=== PATIENT | female | born 1935 | race Caucasian/White ===

== ENCOUNTER 2018-05-29 05:45 | Inpatient (IN) ==
[2018-05-26 12:37] LABS: Basophils # 0.1 10*3/uL (0.0-0.2); Basophils % 0.6 % (0.0-0.8); Eosinophils # 0.1 10*3/uL (0.0-0.87); Eosinophils % 1.1 % (0.00-10.9); Hematocrit 43.5 VOL% (35.7-47.0); Hemoglobin 13.5 GM/DL (12.0-16.0); Immature Granulocytes % 0.4 %; Immature Granulocytes Absolute 0.04 #; Lymphocytes # 1.1 10*3/uL (1.4-4.0); Lymphocytes % 11.1 % (21.3-54.2); Mean Corpuscular Hemoglobin 28 PG (27-34); Mean Corpuscular Volume 89.3 FL (87-102); Mean Platelet Volume 11.2 FL (9.6-12.0); Monocytes # 0.7 10*3/uL (0.11-0.8); Monocytes % 7.1 % (1.7-12.7); Neutrophils # 7.9 10*3/uL (1.4-7.4); Neutrophils % 79.7 % (38.7-73.9); Platelet Count 346 T/CUMM (130-400); Red Blood Count 4.87 MC/CUMM (3.8-5.5); Red Cell Distribution Width 16.7 % (9.3-17.3)
[2018-05-26 12:45] LABS: PT Patient Result 10.7 SECS
[2018-05-26 12:56] LABS: Calcium 9.4 MG/DL (8.5-10.1); Osmolality,Calculated 285.4 MOS/KG (273-304); Potassium 4.6 MMOL/L (3.5-5.1)
[2018-05-28 10:36] LABS: Apearance,Urine Slightly Hazy (Clear); Bacteria,Urine Occasional /HPF (Few); Bilirubin,Urine Negative (Negative); Blood, Urine Negative (Negative); Glucose,Urine (UA) Negative (Negative); Ketones,Urine Negative (Negative); Mucus,Urine Occasional /LPF (Occasional); Nitrite,Urine Negative (Negative); Protein,Urine Negative; RBC,Urine <1 /HPF (0-4); Squamous Epithelial Cell,Urine Occasional /HPF (0-10); Urine Color Yellow (Yellow); Urine Specific Gravity 1.017 (1.001-1.035); Urine Urobilinogen < 2.0 EU/DL (0.2-1.0)
[~2018-05-29 05:45] MED LIST: CEFUROXIME 1,500 MG VIAL ONE; SODIUM CHLORIDE 0.9% 1,000 ML IV PRN
[2018-05-29] MEDS ORDERED: HEPARIN/NACL 0.9% 2 UNITS/ML 500 ML IV ONE (06:06)
[2018-05-29] MEDS ORDERED: PHENYLEPHRINE DRIP 20 MG/250 ML PREMIX IV ONE (06:07)
[2018-05-29] MEDS ORDERED: TISSUE ADHESIVE 1 EACH APPLICATOR TOP ONE (06:20)
[2018-05-29] MEDS: LACTATED RINGERS 1,000 ML IV SCH ×2 (06:20→10:58)
[2018-05-29] MEDS ORDERED: BUPIVACAINE LIPOSOMAL 20 ML/266 MG VIAL ONE (06:20)
[2018-05-29] MEDS ORDERED: DOXYCYCLINE HYCLATE IV ONE (06:30)
[2018-05-29] MEDS ORDERED: SODIUM CHLORIDE 0.9% IV ONE (06:30)
[2018-05-29] MEDS ORDERED: THROMBIN TOPICAL (RECOMBINANT) 5,000 UNIT VIAL TOP ONE (06:35)
[2018-05-29] MEDS ORDERED: ceFAZolin 1,000 MG in SYRINGE 1 EACH IV ONE (06:50)
[2018-05-29] MEDS ORDERED: ceFAZolin 1,000 MG VIAL ONE (06:52)
[2018-05-29] MEDS ORDERED: CLINDAMYCIN 600 MG/4 ML VIAL ONE (08:23)
[2018-05-29] MEDS ORDERED: SUGAMMADEX 200 MG/2 ML VIAL IV ONE (09:36)
[2018-05-29] MEDS ORDERED: ONDANSETRON 4 MG/2 ML VIAL IV PRN ×2 (10:15→10:46)
[2018-05-29 10:24] LABS: Apearance,Urine CLEAR (Clear); Bilirubin,Urine Negative (Negative); Blood, Urine Negative (Negative); Glucose,Urine (UA) Negative (Negative); Ketones,Urine Negative (Negative); Nitrite,Urine Negative (Negative); Protein,Urine Negative; RBC,Urine <1 /HPF (0-4); Squamous Epithelial Cell,Urine Occasional /HPF (0-10); Urine Color Yellow (Yellow); Urine Specific Gravity 1.016 (1.001-1.035); Urine Urobilinogen < 2.0 EU/DL (0.2-1.0); WBC,Urine <1 /HPF (0-6)
[2018-05-29] MEDS ORDERED: CLINDAMYCIN INJ 600 MG in PREMIX 1 EACH IV ONE (10:25)
[2018-05-29 10:46] LABS: Basophils # 0.1 10*3/uL (0.0-0.2); Basophils % 0.5 % (0.0-0.8); Eosinophils # 0.2 10*3/uL (0.0-0.87); Eosinophils % 2.2 % (0.00-10.9); Hematocrit 39.4 VOL% (35.7-47.0); Hemoglobin 12.3 GM/DL (12.0-16.0); Immature Granulocytes % 0.6 %; Immature Granulocytes Absolute 0.06 #; Lymphocytes # 2.7 10*3/uL (1.4-4.0); Lymphocytes % 26.4 % (21.3-54.2); Mean Corpuscular HGB Conc 31.2 GM/DL (32-36); Mean Corpuscular Hemoglobin 28 PG (27-34); Monocytes # 0.7 10*3/uL (0.11-0.8); Monocytes % 6.9 % (1.7-12.7); Neutrophils # 6.6 10*3/uL (1.4-7.4); Neutrophils % 63.4 % (38.7-73.9); Platelet Count 320 T/CUMM (130-400); Red Blood Count 4.38 MC/CUMM (3.8-5.5); Red Cell Distribution Width 16.6 % (9.3-17.3); White Blood Count 10.3 T/CUMM (4-12)
[2018-05-29] MEDS ORDERED: HYDROmorphone 2 MG/1 ML VIAL ONE (10:47)
[2018-05-29] MEDS ORDERED: ONDANSETRON 4 MG/2 ML VIAL ONE ×2 (10:48→10:53)
[2018-05-29] MEDS: HYDROmorphone 2 MG/1 ML VIAL IV PRN ×4 (10:50→11:08)
[2018-05-29] MEDS ORDERED: fentaNYL 100 MCG/2 ML VIAL ONE (10:53)
[2018-05-29] MEDS ORDERED: DESFLURANE 1 UNIT/15 MINUTE INH ONE (10:53)
[2018-05-29] MEDS ORDERED: PHENYLEPHRINE 1 MG/10 ML SYRINGE IV ONE (10:54)
[2018-05-29] MEDS ORDERED: LACTATED RINGERS 1,000 ML IV ONE (10:54)
[2018-05-29] MEDS ORDERED: ETOMIDATE 40 MG/20 ML VIAL IV ONE (10:54)
[2018-05-29] MEDS ORDERED: ROCURONIUM 100 MG/10 ML VIAL IV ONE (10:54)
[2018-05-29] MEDS ORDERED: ACETAMINOPHEN 1,000 MG/100 ML VIAL IV ONE (10:54)
[2018-05-29 11:35] LABS: Calcium 8.5 MG/DL (8.5-10.1); Osmolality,Calculated 286.3 MOS/KG (273-304); Potassium 4.6 MMOL/L (3.5-5.1)
[2018-05-29] MEDS: KETOROLAC 15 MG/1 ML VIAL IV SCH ×3 (12:06→21:59)
[2018-05-29] MEDS: POTASSIUM CHLORIDE INJ 10 MEQ in SODIUM CHLORIDE 0.45% 1,000 ML IV SCH (12:07)
[2018-05-29] MEDS ORDERED: LACTATED RINGERS 500 ML IV ONE ×2 (12:38→13:50)
[2018-05-29] MEDS ORDERED: PHENYLEPHRINE DRIP 40 MG/250 ML PREMIX IV PRN (13:49)
[2018-05-29] MEDS ORDERED: PHENYLEPHRINE DRIP 40 MG/250 ML PREMIX IV ONE (13:51)
[2018-05-29 14:23] LABS: Hematocrit 38.9 VOL% (35.7-47.0); Hemoglobin 11.9 GM/DL (12.0-16.0)
[2018-05-29] MEDS: GABAPENTIN 100 MG CAPSULE PO SCH ×2 (15:22→21:59)
[2018-05-29] MEDS: ACETAMINOPHEN INJ 1,000 MG in PREMIX 1 EACH IV SCH ×2 (15:25→21:59)
[2018-05-29] MEDS: NOREPINEPHRINE 8 MG in SODIUM CHLORIDE 0.9% 242 ML IV PRN (17:25)
[2018-05-29] MEDS: CEFUROXIME INJ 1,500 MG in SYRINGE 1 EACH IV SCH (17:50)
[2018-05-30 04:09] LABS: Basophils % 0.2 % (0.0-0.8); Eosinophils # 0.1 10*3/uL (0.0-0.87); Eosinophils % 0.4 % (0.00-10.9); Hematocrit 41.8 VOL% (35.7-47.0); Hemoglobin 12.6 GM/DL (12.0-16.0); Immature Granulocytes % 0.4 %; Immature Granulocytes Absolute 0.06 #; Lymphocytes # 1.2 10*3/uL (1.4-4.0); Lymphocytes % 8.4 % (21.3-54.2); Mean Corpuscular HGB Conc 30.1 GM/DL (32-36); Mean Corpuscular Hemoglobin 28 PG (27-34); Mean Corpuscular Volume 91.9 FL (87-102); Mean Platelet Volume 11.3 FL (9.6-12.0); Monocytes # 1.3 10*3/uL (0.11-0.8); Monocytes % 8.7 % (1.7-12.7); Neutrophils # 12.1 10*3/uL (1.4-7.4); Neutrophils % 81.9 % (38.7-73.9); Platelet Count 377 T/CUMM (130-400); Red Blood Count 4.55 MC/CUMM (3.8-5.5); White Blood Count 14.8 T/CUMM (4-12)
[2018-05-30 04:20] LABS: Calcium 8.7 MG/DL (8.5-10.1); Osmolality,Calculated 279.7 MOS/KG (273-304); Potassium 5.8 MMOL/L (3.5-5.1)
[2018-05-30] MEDS: POTASSIUM CHLORIDE INJ 10 MEQ in SODIUM CHLORIDE 0.45% 1,000 ML IV SCH (05:14)
[2018-05-30] MEDS: ENOXAPARIN 40 MG/0.4 ML SYRINGE SUBCUT SCH (05:40)
[2018-05-30] MEDS: ACETAMINOPHEN 500 MG TABLET PO SCH ×4 (05:40→21:53)
[2018-05-30] MEDS: KETOROLAC 15 MG/1 ML VIAL IV SCH ×4 (05:40→21:53)
[2018-05-30] MEDS: CEFUROXIME INJ 1,500 MG in SYRINGE 1 EACH IV SCH (05:41)
[2018-05-30] MEDS: LACTATED RINGERS 1,000 ML IV SCH (05:42)
[2018-05-30] MEDS ORDERED: DEXTROSE 50% 25 GM/50 ML SYRINGE IV ONE (07:58)
[2018-05-30] MEDS ORDERED: INSULIN REGULAR 100 UNIT/ML IV ONE (07:58)
[2018-05-30] MEDS: PANTOPRAZOLE 40 MG VIAL IV SCH (08:18)
[2018-05-30] MEDS: GABAPENTIN 100 MG CAPSULE PO SCH ×3 (08:20→21:53)
[2018-05-30] MEDS: CELECOXIB 200 MG CAPSULE PO SCH ×2 (08:20→21:53)
[2018-05-30] MEDS ORDERED: CALCIUM GLUCONATE 1,000 MG in SODIUM CHLORIDE 0.9% 100 ML IV ONE (08:30)
[2018-05-30] MEDS: SODIUM CHLORIDE 0.45% 1,000 ML IV SCH ×2 (08:46→22:30)
[2018-05-30] MEDS ORDERED: traMADol 50 MG TABLET PO PRN (10:15)
[2018-05-30] MEDS: NOREPINEPHRINE 8 MG in SODIUM CHLORIDE 0.9% 242 ML IV PRN (12:00)
[2018-05-31] MEDS: ENOXAPARIN 40 MG/0.4 ML SYRINGE SUBCUT SCH (04:12)
[2018-05-31] MEDS: ACETAMINOPHEN 500 MG TABLET PO SCH ×4 (04:12→21:45)
[2018-05-31] MEDS: KETOROLAC 15 MG/1 ML VIAL IV SCH (04:13)
[2018-05-31 04:20] LABS: Basophils # 0.1 10*3/uL (0.0-0.2); Basophils % 0.5 % (0.0-0.8); Eosinophils # 0.2 10*3/uL (0.0-0.87); Eosinophils % 1.7 % (0.00-10.9); Hematocrit 37.1 VOL% (35.7-47.0); Hemoglobin 11.2 GM/DL (12.0-16.0); Immature Granulocytes % 0.5 %; Immature Granulocytes Absolute 0.05 #; Lymphocytes % 9.4 % (21.3-54.2); Mean Corpuscular HGB Conc 30.2 GM/DL (32-36); Mean Corpuscular Hemoglobin 28 PG (27-34); Mean Platelet Volume 11.4 FL (9.6-12.0); Monocytes # 0.8 10*3/uL (0.11-0.8); Monocytes % 8.1 % (1.7-12.7); Neutrophils # 8.2 10*3/uL (1.4-7.4); Neutrophils % 79.8 % (38.7-73.9); Platelet Count 361 T/CUMM (130-400); Red Blood Count 3.99 MC/CUMM (3.8-5.5); Red Cell Distribution Width 17.3 % (9.3-17.3); White Blood Count 10.3 T/CUMM (4-12)
[2018-05-31 04:45] LABS: Calcium 8.5 MG/DL (8.5-10.1); Osmolality,Calculated 284.1 MOS/KG (273-304); Potassium 5.1 MMOL/L (3.5-5.1)
[2018-05-31] MEDS: LACTATED RINGERS 1,000 ML IV SCH (06:13)
[2018-05-31] MEDS: GABAPENTIN 100 MG CAPSULE PO SCH ×3 (08:20→21:45)
[2018-05-31] MEDS: CELECOXIB 200 MG CAPSULE PO SCH ×2 (08:20→21:45)
[2018-05-31] MEDS: PANTOPRAZOLE 40 MG VIAL IV SCH (08:20)
[2018-05-31] MEDS: SODIUM CHLORIDE 0.45% 1,000 ML IV SCH (12:02)
[2018-05-31] MEDS: NOREPINEPHRINE 8 MG in SODIUM CHLORIDE 0.9% 242 ML IV PRN (15:00)
[2018-06-01] MEDS: LACTATED RINGERS 1,000 ML IV SCH (05:00)
[2018-06-01] MEDS: ACETAMINOPHEN 500 MG TABLET PO SCH ×4 (05:10→21:31)
[2018-06-01] MEDS: ENOXAPARIN 40 MG/0.4 ML SYRINGE SUBCUT SCH (05:10)
[2018-06-01 05:48] LABS: Basophils % 0.2 % (0.0-0.8); Eosinophils # 0.2 10*3/uL (0.0-0.87); Eosinophils % 2.7 % (0.00-10.9); Hematocrit 36.7 VOL% (35.7-47.0); Hemoglobin 11.3 GM/DL (12.0-16.0); Immature Granulocytes % 0.4 %; Immature Granulocytes Absolute 0.03 #; Lymphocytes # 0.8 10*3/uL (1.4-4.0); Lymphocytes % 9.5 % (21.3-54.2); Mean Corpuscular HGB Conc 30.8 GM/DL (32-36); Mean Corpuscular Hemoglobin 28 PG (27-34); Mean Corpuscular Volume 91.1 FL (87-102); Mean Platelet Volume 11.2 FL (9.6-12.0); Monocytes # 0.6 10*3/uL (0.11-0.8); Monocytes % 6.6 % (1.7-12.7); Neutrophils # 6.8 10*3/uL (1.4-7.4); Neutrophils % 80.6 % (38.7-73.9); Platelet Count 374 T/CUMM (130-400); Red Blood Count 4.03 MC/CUMM (3.8-5.5); Red Cell Distribution Width 17.3 % (9.3-17.3); White Blood Count 8.4 T/CUMM (4-12)
[2018-06-01 06:02] LABS: Calcium 8.7 MG/DL (8.5-10.1); Osmolality,Calculated 281.4 MOS/KG (273-304)
[2018-06-01] MEDS: PANTOPRAZOLE 40 MG VIAL IV SCH (08:00)
[2018-06-01] MEDS: CELECOXIB 200 MG CAPSULE PO SCH ×2 (08:00→20:55)
[2018-06-01] MEDS: GABAPENTIN 100 MG CAPSULE PO SCH ×3 (08:00→20:55)
[2018-06-01] MEDS ORDERED: ALBUTEROL 2.5 MG/3 ML NEB RESP TX PRN (14:38)
[2018-06-01] MEDS: APIXABAN 2.5 MG TABLET PO SCH (20:55)
[2018-06-02] MEDS: ACETAMINOPHEN 500 MG TABLET PO SCH ×5 (05:32→22:40)
[2018-06-02] MEDS: LACTATED RINGERS 1,000 ML IV SCH (05:33)
[2018-06-02] MEDS: FUROSEMIDE 20 MG TABLET PO SCH (08:18)
[2018-06-02] MEDS: APIXABAN 2.5 MG TABLET PO SCH ×2 (08:19→21:35)
[2018-06-02] MEDS: GABAPENTIN 100 MG CAPSULE PO SCH ×3 (08:19→21:35)
[2018-06-02] MEDS: CELECOXIB 200 MG CAPSULE PO SCH ×2 (08:19→21:35)
[2018-06-02] MEDS: PANTOPRAZOLE 40 MG VIAL IV SCH (08:19)
[2018-06-02 10:20] LABS: Basophils % 0.2 % (0.0-0.8); Eosinophils # 0.3 10*3/uL (0.0-0.87); Eosinophils % 2.9 % (0.00-10.9); Hematocrit 36.5 VOL% (35.7-47.0); Hemoglobin 11.6 GM/DL (12.0-16.0); Immature Granulocytes % 0.8 %; Immature Granulocytes Absolute 0.08 #; Lymphocytes # 0.9 10*3/uL (1.4-4.0); Mean Corpuscular HGB Conc 31.8 GM/DL (32-36); Mean Corpuscular Hemoglobin 29 PG (27-34); Mean Corpuscular Volume 89.9 FL (87-102); Mean Platelet Volume 11.1 FL (9.6-12.0); Monocytes # 0.6 10*3/uL (0.11-0.8); Monocytes % 6.1 % (1.7-12.7); Neutrophils # 7.7 10*3/uL (1.4-7.4); Platelet Count 461 T/CUMM (130-400); Red Blood Count 4.06 MC/CUMM (3.8-5.5); Red Cell Distribution Width 17.5 % (9.3-17.3); White Blood Count 9.5 T/CUMM (4-12)
[2018-06-02 10:36] LABS: Calcium 8.4 MG/DL (8.5-10.1); Osmolality,Calculated 282.5 MOS/KG (273-304); Potassium 5.4 MMOL/L (3.5-5.1)
[2018-06-03 04:53] LABS: Basophils % 0.3 % (0.0-0.8); Eosinophils # 0.3 10*3/uL (0.0-0.87); Eosinophils % 4.5 % (0.00-10.9); Hematocrit 34.6 VOL% (35.7-47.0); Hemoglobin 10.9 GM/DL (12.0-16.0); Immature Granulocytes % 0.5 %; Immature Granulocytes Absolute 0.04 #; Lymphocytes # 1.1 10*3/uL (1.4-4.0); Mean Corpuscular HGB Conc 31.5 GM/DL (32-36); Mean Corpuscular Hemoglobin 28 PG (27-34); Mean Corpuscular Volume 88.7 FL (87-102); Monocytes # 0.7 10*3/uL (0.11-0.8); Monocytes % 8.9 % (1.7-12.7); Neutrophils # 5.4 10*3/uL (1.4-7.4); Neutrophils % 71.8 % (38.7-73.9); Platelet Count 427 T/CUMM (130-400); Red Cell Distribution Width 17.4 % (9.3-17.3); White Blood Count 7.5 T/CUMM (4-12)
[2018-06-03] MEDS: ACETAMINOPHEN 500 MG TABLET PO SCH ×2 (04:58→09:20)
[2018-06-03 05:04] LABS: Calcium 8.2 MG/DL (8.5-10.1); Osmolality,Calculated 287.3 MOS/KG (273-304); Potassium 5.1 MMOL/L (3.5-5.1)
[2018-06-03] MEDS: LACTATED RINGERS 1,000 ML IV SCH (06:43)
[2018-06-03 08:20] VITALS: BP 123/64
[2018-06-03] MEDS ORDERED: POTASSIUM CHLORIDE 8 MEQ CAPSULE PO SCH (09:00)
[2018-06-03] MEDS: CELECOXIB 200 MG CAPSULE PO SCH (09:20)
[2018-06-03] MEDS: APIXABAN 2.5 MG TABLET PO SCH (09:20)
[2018-06-03] MEDS: FUROSEMIDE 20 MG TABLET PO SCH (09:20)
[2018-06-03] MEDS: PANTOPRAZOLE 40 MG VIAL IV SCH (09:21)
[2018-06-03] MEDS: GABAPENTIN 100 MG CAPSULE PO SCH (09:21)
== END 2018-06-03 12:45 | disposition home health service (06) | DRG 167 ==
LOC: N.SDSINP 05:45 → N.ICU 10:23 → N.TELES 06-01 14:37
PROVIDERS: ADMIT Thoracic Surgery (Cardiothoracic Vascular Surgery); ATTEND Thoracic Surgery (Cardiothoracic Vascular Surgery)